=== PATIENT | male | born 1990 | race African-American/Black ===

== ENCOUNTER 2021-09-06 11:49 | Emergency (ER) | payer MEDICAID ==
[~2021-09-06] VITALS: Ht 182.9 cm; Wt 145.0 kg
[2021-09-06] MEDS ORDERED: ACETAMINOPHEN 325MG TABLET PO ONE (12:00)
[2021-09-06] MEDS ORDERED: IBUPROFEN 600MG TABLET PO ONE (12:00)
[2021-09-06 13:10] VITALS: BP 134/86
[2021-09-06] MEDS ORDERED: IBUP-2029 MT (14:07)
== END 2021-09-06 14:19 | disposition home or self-care (01) ==
LOC: ER 12:15
DX: S40.012A Contusion of left shoulder, initial encounter (principal); V49.49XA Driver injured in collision with other motor vehicles in traffic accident, initial encounter; R03.0 Elevated blood-pressure reading, without diagnosis of hypertension; Y93.89 Activity, other specified; Y92.488 Other paved roadways as the place of occurrence of the external cause
CPT/HCPCS: 71045; 73030; 73060; 99284; A4565